=== PATIENT | female | born 2000 | race Caucasian/White ===

== ENCOUNTER 2024-03-20 11:05 | Observation (INO) | payer OTHER, SELFPAY ==
--- NOTE | 2024-03-20 11:20 | US_ITS ---
[address] [address] Patient Name: LAKESHA QURESHI MRN: [id number] date: 2000 Sex: F Assigned Patient Location: [facility] Current Patient Location: [facility] Accession/Order Number: [id number] Exam Date: 03/20/2024 11:23 Report Date: 03/20/2024 11:53 At the request of: LAURA POLLARD Procedure: US OB cervical length EXAMINATION: US OB cervical length HISTORY: bloody vaginal discharge COMPARISON: No relevant comparison available. FINDINGS: position: Cephalic Cervix: 4.1 cm, closed Clinical age: 24 weeks 1 day Clinical ALETHEA: 07/09/2024 US/US OB cervical length IMPRESSION: Closed cervix measuring 4.1 cm Electronically authenticated by: FARZANA PRO Date: 03/20/2024 11:53
--- NOTE | 2024-03-20 11:29 | PC.NURSE ---
1115: Arrives ambulatory from home with c/o bloody with wiping after urinating- small amount. Has history of kidney stones and denies back pain or other symptoms. To bathroom for urine sample and US in room for cervical length.
[2024-03-20 12:20] LABS: Bilirubin Urine NEGATIVE (NEGATIVE); Blood Urine NEGATIVE (NEGATIVE); Clarity Urine CLEAR (CLEAR); Color Urine LT. YELLOW (YELLOW); Glucose Urine UA NEGATIVE (NEGATIVE); Ketones Urine NEGATIVE (NEGATIVE); Leukocyte Esterase Urine NEGATIVE (NEGATIVE); Nitrite Urine NEGATIVE (NEGATIVE); Protein Urine NEGATIVE (NEG/TRACE); Specific Gravity Urine 1.015 (1.005-1.025); Urobilinogen Urine 0.2 EU/dL (0.2-1.0); pH Urine 7.5 (5.0-9.0)
[2024-03-20 12:27] LABS: Urine Microscopic Indicated NO
--- NOTE | 2024-03-20 13:18 | PC.NURSE ---
1240: TC to CNM and no answer to cell phone. 1255: TC to CNM and no answer on cell phone. TC to office and recording received. 1258: CNM calls and report given- reported urinalysisi, cervical length and hear tones. Informed of scant blood on toilet paper after voiding and started about 5 days ago. Denies intercourse within 24-48 hours and denies need for abel pad. No flank pain palpated bilaterally. No fever noted. Denies pain with voiding. Order received for discharge and f/u in office. 1315: Discharged ambulatory with undelivered.
== END 2024-03-20 13:15 | disposition home or self-care (01) ==
PROVIDERS: Admitting Provider Midwife; PCP Internal Medicine; Visit Provider Midwife
DX: O26.892 Other specified pregnancy related conditions, second trimester (principal); N89.8 Other specified noninflammatory disorders of vagina; Z3A.24 24 weeks gestation of pregnancy
CPT/HCPCS: 76817; 81003; G0378; G0379

== ENCOUNTER 2024-07-04 05:25 | Inpatient (IN) | payer OTHER, SELFPAY ==
[2024-07-04] VITALS (33 sets, daily range): BP systolic 74–144; BP diastolic 43–105; PULSE 85–110; TEMP 36.1–37.2; O2SAT 97–100
[2024-07-04] MEDS: LACTATED RINGER'S SOLUTION 1,000 ML 1000 ML IV ×2 (05:48→06:54)
[2024-07-04 06:18] LABS: Bilirubin Urine NEGATIVE (NEGATIVE); Blood Urine NEGATIVE (NEGATIVE); Clarity Urine CLEAR (CLEAR); Color Urine LT. YELLOW (YELLOW); Glucose Urine UA NEGATIVE (NEGATIVE); Ketones Urine NEGATIVE (NEGATIVE); Leukocyte Esterase Urine NEGATIVE (NEGATIVE); Nitrite Urine NEGATIVE (NEGATIVE); Protein Urine NEGATIVE (NEG/TRACE); Urobilinogen Urine 0.2 EU/dL (0.2-1.0)
[2024-07-04 06:24] LABS: Bacteria Urine TRACE #/HPF (NONE SEEN); Cast Seen? NONE SEEN #/LPF (NONE SEEN); Crystals Seen? None Seen #/HPF (None Seen); RBC Urine 0-2 #/HPF (0-2); Squamous Epithelial Cell Urine RARE #/LPF (NONE/RARE); WBC Urine 0-2 #/HPF (NONE SEEN)
[2024-07-04 06:25] LABS: Urine Culture Indicated NO
[2024-07-04 06:28] LABS: Amphetamine Screen Urine NEGATIVE (NEGATIVE); Barbiturates Screen Urine NEGATIVE (NEGATIVE); Benzodiazepines Screen Urine NEGATIVE (NEGATIVE); Buprenorphine Screen Urine NEGATIVE (NEGATIVE); Cannabinoid Screen Urine NEGATIVE (NEGATIVE); Cocaine Screen Urine NEGATIVE (NEGATIVE); Methadone Screen Urine NEGATIVE (NEGATIVE); Methamphetamines Screen Urine NEGATIVE (NEGATIVE); Opiate Screen Urine NEGATIVE (NEGATIVE); Oxycodone Screen Urine NEGATIVE (NEGATIVE); Phencyclidine Screen Urine NEGATIVE (NEGATIVE); Tricyclic Antidepressant Urine NEGATIVE (NEGATIVE)
[2024-07-04 06:41] LABS: Hematocrit 35.5 % (36.0-48.0); Hemoglobin 12.3 g/dL (12.0-16.0); Mean Corpuscular HGB Conc 34.6 g/dL (29.9-35.2); Mean Corpuscular Hemoglobin 31.2 pg (26.7-34.0); Mean Corpuscular Volume 90.1 fL (81.0-99.0); Mean Platelet Volume 12.5 fL (9.5-13.5); Platelet Count 172 10^3/uL (150-450); Red Blood Count 3.94 10^6/uL (4.20-5.40); Red Cell Distribution Width 13.5 % (11.0-15.0); White Blood Count 8.1 10^3/uL (4.0-11.0)
[2024-07-04] MEDS: METOCLOPRAMIDE HCL 10 MG/2 ML VIAL IVP (07:11)
[2024-07-04] MEDS: FAMOTIDINE/PF 20 MG/2 ML VIAL IV (07:11)
[2024-07-04] MEDS: CITRIC ACID/SODIUM CITRATE 30 ML SOLUTION ORACIT SHOHL'S SOLN PO (07:11)
--- NOTE | 2024-07-04 07:16 | P.OBHP_ITS ---
OB - H&P: HPI History of Present Illness Chief complaint: : 1 Para: 0 History of Present Dating criteria: LMP confirmed by 1st trimester US care: good care Ultrasounds: normal 1st trimester US and normal mid trimester US Medical complications OB: none Narrative: patient has h/o asthma but no problems for a long time and no meds Labs Blood type: A (+) positive Rubella: immune RPR/VDLR: nonreactive GBS status: negative HBsAG: negative Review of Systems ROS Status of ROS: 10 or more systems reviewed and unremarkable except as noted in history and below Psychiatric: Reports: anxiety PFSH PFSH Social History Little interest or pleasure in doing things: not at all Feeling down, depressed, or hopeless: not at all Meds Home Medications and Allergies Allergies Allergy/AdvReac Type Severity Reaction Status Date / Time milk Allergy hives Verified 07/04/24 06:45 soy Allergy hives Verified 07/04/24 06:45 peanuts Allergy Anaphylaxis Uncoded 07/04/24 06:45 Exam Constitutional Vital Signs, click to edit/add: Last Vital Signs Temp 99.0 F 07/04/24 05:49 Resp 16 07/04/24 05:49 O2 Del Method Room Air 07/04/24 05:49 Documenting provider has reviewed patient's vital signs: yes Common normals: no apparent distress and oriented x3 General appearance: cooperative, comfortable, well kempt and well developed Orientation/consciousness: Yes awake, Yes oriented to person, Yes oriented to place and Yes oriented to time HENMT Common normals: normocephalic Head and scalp: normal to inspection Face and sinus: normal facial exam Eye Common normals: EOMs intact bilaterally General eye: normal appearance of both eyes Neck & C-Spine Common normals: full ROM and no lymphadenopathy Lymph Lymphatic: no lymphadenopathy noted Chest Common normals: inspection of chest normal Respiratory Common normals: normal respiratory effort, no retractions, no use of accessory muscles, clear to auscultation bilaterally and percussion normal Effort & inspection: able to speak in complete sentences Auscultation: clear to auscultation bilaterally Cardio Common normals: regular rate and regular rhythm Rate: regular rate Rhythm: regular rhythm GI Common normals: Normal to inspection, nondistended, normoactive bowel sounds present Inspection: normal to inspection Palpation: soft Common normals: no CVA tenderness Back & Pelvis Common normals: no CVA tenderness Thoracic spine/upper back: normal to inspection Extremity Common normals: normal to inspection Neuro Common normals: oriented x3 Sensorium/orientation: awake, alert, oriented to person, oriented to place and oriented to time Psych Common normals: mental status grossly normal, thought process normal, cooperative, affect normal, speech normal, activity/motor behavior normal, denies hallucinations, denies homicidal ideation and denies suicidal ideation Attitude: calm Results Labs Labs: Short CBC 07/04/24 Range/Units 05:45 WBC 8.1 (4.0-11.0) 10^3/uL Hgb 12.3 (12.0-16.0) g/dL Hct 35.5 L (36.0-48.0) % Plt Count 172 (150-450) 10^3/uL Urine 07/04/24 Range/Units 05:30 Urine Color Lt. yellow (YELLOW) Urine Clarity Clear (CLEAR) Urine pH 6.0 (5.0-9.0) Ur Specific [place] 1.020 (1.005-1.025) Urine Protein Negative (NEG/TRACE) mg/dL Urine Glucose (UA) Negative (NEGATIVE) mg/dL OB - A/P Assessment and Plan (1) Term : (2) Breech delivery: (3) History of primary section: Plan admit to L&D for primary section for breech presentation Urinary Catheter Management Urinary Catheter Management Urethral: Cath placed during this visit: no Urethral indwelling: Yes Reason for continuing: prolonged immobilization
[2024-07-04] MEDS: CEFAZOLIN SODIUM/DEXTROSE,ISO 2 GM/50 ML PIGGYBACK IV ×2 (07:17→12:25)
[2024-07-04] MEDS: LACTATED RINGER'S SOLUTION 1,000 ML 50 ML IV ×2 (08:10→08:18)
--- NOTE | 2024-07-04 08:26 | P.ON_ITS ---
Brief Operative Note Date of procedure: 07/04/24 Pre-op diagnosis general: iup at 39wks, breech presentation Post-op diagnosis: same as pre-op Procedure: NAME OF PROCEDURE: [ section ] PROCEDURE: Patient was taken back to the Operating Room where she was given a spinal anesthesia with Duramorph without difficulty. She was prepped and draped in the normal sterile fashion. A Pfannenstiel skin incision was then made 2 cm above the symphysis pubis and carried down to underlying rectus fascia using a Bovie. The fascia was incised in the midline and extended laterally using Lockhart scissors. Two Tutu clamps were placed on the superior aspect of the fascia and dissected off the underlying rectus muscles. The same was performed on the inferior aspect as well. The muscles were then in the midline. Peritoneum was identified and entered bluntly. The peritoneum was then extended superiorly and inferiorly with good visualization of the bladder. The bladder blade was inserted. A low transverse incision was made on the patient's uterus and extended laterally digitally. The was then delivered atraumatically after the bladder blade was removed in the cephalic position. The cord was clamped and cut. Cord blood was obtained. The was handed off to awaiting team. The patient's placenta was spontaneously delivered. The uterus was then exteriorized. The uterus was cleared of all clots and debris. The bladder blade was reinserted. The patient's uterine incision was closed using #0 Vicryl in a running lock fashion. Excellent hemostasis was assured. The uterus was then returned to the patient's abdomen. The patient's abdomen was copiously irrigated using warm saline. Peritoneal gutters were cleared of all clots and debris. Again excellent hemostasis was assured. The patient's peritoneum was closed using 3-0 Vicryl in a running fashion. The patient's fascia was closed using #0 Vicryl in a running fashion. The patient's skin was closed using 4-0 Vicryl subcuticularly. The patient tolerated the procedure well. Sponge, lap, and needle counts were correct x2. The patient was taken to the Recovery Room in stable condition. Anesthesia: spinal Surgeon: Deni Freeman Sugar Cane Planting Equipment Operator: LAURA POLLARD Estimated blood loss (mL): 600 Pathology: other (placenta) Condition: stable Disposition: floor Urinary Catheter Management Urinary Catheter Management Urethral: Cath placed during this visit: no Urethral indwelling: Yes
--- NOTE | 2024-07-04 08:26 | PM.OBPRCCS ---
Procedure Pre-op/Post-op diagnoses: Pre-Op/Post-Op Diagnoses Operation Date: 07/04/24 07:30 <No data on this case meets the specified criteria> Procedure: Procedures Operation Date: 07/04/24 07:30 Actual Procedure Side Surgeon p PRIMARY Not Applicable Deni Freeman DO Stock Crane Operator: LAURA POLLARD Estimated blood loss (mL): 600 Disposition: floor Anesthesia type: Spinal
--- NOTE | 2024-07-04 08:53 | P.EN_ITS ---
Event Note Event Note: Crusher Plant Operator Note: I first assisted Dr Freeman with primary section as directed. I independently closed the SQ layer with 3-0 vicryl. I then independently closed the incision with 4-0 vicryl without difficulty. Hemostasis noted at the completion of the case. Patient tolerated procedure well.
[2024-07-04] MEDS: KETOROLAC TROMETHAMINE 30 MG/ML VIAL IVP ×2 (14:04→20:27)
[2024-07-04] MEDS: ACETAMINOPHEN 500 MG TABLET 1000 MG PO ×2 (16:02→23:48)
[2024-07-04] MEDS: ENOXAPARIN SODIUM 40 MG/0.4 ML SYRINGE SUBQ (20:27)
[2024-07-05] MEDS: SIMETHICONE 80 MG TAB.CHEW PO (00:03)
[2024-07-05 00:05] VITALS: BP 129/86; TEMP 36.2
[2024-07-05] MEDS: KETOROLAC TROMETHAMINE 30 MG/ML VIAL IVP (02:53)
[2024-07-05 04:33] VITALS: BP 123/75; TEMP 36.6
[2024-07-05 06:27] LABS: Basophils Percent Auto 0.1 % (0.2-2.0); Eosinophils Percent Auto 0.1 % (0.9-7.0); Hemoglobin 11.1 g/dL (12.0-16.0); Immature Granulocytes Abs Auto 0.07 10^3/uL (0.00-0.03); Immature Granulocytes Pct Auto 0.5 % (0.0-0.5); Lymphocytes Absolute Auto 2.2 10^3/uL (1.2-3.8); Lymphocytes Percent Auto 15.1 % (20.5-60.0); Mean Corpuscular HGB Conc 34.7 g/dL (29.9-35.2); Mean Corpuscular Hemoglobin 31.3 pg (26.7-34.0); Mean Corpuscular Volume 90.1 fL (81.0-99.0); Mean Platelet Volume 12.3 fL (9.5-13.5); Monocytes Absolute Auto 0.9 10^3/uL (0.3-0.8); Monocytes Percent Auto 5.9 % (1.7-12.0); Neutrophils Absolute Auto 11.7 10^3/uL (1.4-6.5); Neutrophils Percent Auto 78.3 % (43.0-75.0); Platelet Count 184 10^3/uL (150-450); Red Blood Count 3.55 10^6/uL (4.20-5.40); Red Cell Distribution Width 13.6 % (11.0-15.0); White Blood Count 14.9 10^3/uL (4.0-11.0)
--- NOTE | 2024-07-05 07:40 | PM.OBPN ---
OB - PN: Subj Subjective Patient comments: no complaints and pain well controlled [place] status: doing well Exam Constitutional Vital Signs, click to edit/add: Last Vital Signs Temp 97.9 F 07/05/24 04:33 Pulse 88 07/04/24 11:20 Resp 18 07/04/24 16:44 BP 123/75 07/05/24 04:33 Pulse Ox 97 07/04/24 11:15 O2 Del Method Room Air 07/05/24 04:30 Documenting provider has reviewed patient's vital signs: yes Common normals: no apparent distress Respiratory Common normals: normal respiratory effort and clear to auscultation bilaterally Cardio Common normals: regular rate and regular rhythm GI Common normals: Normal to inspection, nondistended, normoactive bowel sounds present Extremity Common normals: no clubbing, cyanosis or edema and no calf tenderness Results Labs Labs: Short CBC 07/05/24 Range/Units 06:13 WBC 14.9 H (4.0-11.0) 10^3/uL Hgb 11.1 L (12.0-16.0) g/dL Hct 32.0 L (36.0-48.0) % Plt Count 184 (150-450) 10^3/uL Urinary Catheter Management Urinary Catheter Management Urethral: Cath placed during this visit: no Urethral indwelling: Yes OB - PN: A/P Assessment and Plan (1) Term : (2) Breech delivery: (3) History of primary section: Plan - day: 1 Plan: routine postop care Time Spent with Patient Time: Total time spent is greater than 50% in coordination of care (as documented) at patient's floor/unit and/or counseling patient: Total time spent with greater than 50% in coordination of care (as documented) at patient's floor/unit and/or counseling patient: less than 15 minutes
[2024-07-05 07:50] VITALS: BP 119/78; PULSE 79
[2024-07-05 07:55] VITALS: TEMP 36.4
[2024-07-05] MEDS: DOCUSATE SODIUM 100 MG CAPSULE PO ×2 (08:23→20:58)
[2024-07-05] MEDS: IBUPROFEN 400 MG TABLET 800 MG PO ×2 (09:25→17:23)
[2024-07-05] MEDS: ACETAMINOPHEN 500 MG TABLET 1000 MG PO ×2 (12:13→20:58)
[2024-07-05 15:36] VITALS: BP 117/75; PULSE 85; TEMP 36.4
[2024-07-05] MEDS: ENOXAPARIN SODIUM 40 MG/0.4 ML SYRINGE SUBQ (20:58)
[2024-07-05 23:55] VITALS: BP 106/66; PULSE 88; TEMP 37
[2024-07-06 07:50] VITALS: TEMP 36.8
--- NOTE | 2024-07-06 07:53 | W.PC.ACHO ---
Registration Status: ADM IN Primary Language: Emirati Preferred Language: Emirati Report received from Keyur RN at 0710. Care assumed. Active Medications Generic Name Dose Route Start Last Admin Trade Name Freq PRN Reason Stop Dose Admin Acetaminophen 1,000 mg 07/04/24 16:00 07/05/24 20:58 Acetaminophen 500 Mg Tablet PO 07/06/24 09:00 1,000 mg Q8H TAYLOR Administration Al Hydroxide/Mg Hydroxide 2,400 mg 07/04/24 08:56 Magnesium Hydroxide 2,400 Mg/10 Ml Oral.Susp PO Q6H PRN Dyspepsia Diphtheria/Pertussis/Tetanus Vacc 0.5 ml 07/06/24 09:00 Adacel Diph,Pertuss(Acell),Tet Vac/Pf 0.5 Ml Adult Syringe IM 07/06/24 09:01 .ONCE ONE Docusate Sodium 100 mg 07/05/24 09:00 07/05/24 20:58 Docusate Sodium 100 Mg Capsule PO 100 mg BID TAYLOR Administration Enoxaparin Sodium 40 mg 07/04/24 21:00 07/05/24 20:58 Enoxaparin Sodium 40 Mg/0.4 Ml Syringe SUBQ 40 mg Q24H TAYLOR Administration Oxytocin/Sodium Chloride 20 units in 1,000 mls @ 125 mls/hr 07/04/24 05:27 Pitocin 20 Unit/1,000 Ml-Ns IV Q8H PRN POST DELIVERY Promethazine HCl 25 mg/ Sodium 51 mls @ 204 mls/hr 07/04/24 08:56 Chloride IV Q6H PRN Nausea And Vomiting Lactated Ringer's 1,000 mls @ 125 mls/hr 07/04/24 08:56 Lactated Ringers IV .Q8H PRN IF NOT TOLERATING PO FLUIDS OR Ibuprofen 800 mg 07/05/24 10:00 07/06/24 02:00 Ibuprofen 400 Mg Tablet PO Not Given Q8H TAYLOR Ondansetron HCl 4 mg 07/04/24 08:56 Ondansetron Pf 4 Mg/2 Ml Vial IV Q6H PRN Nausea And Vomiting Ondansetron HCl 4 mg 07/04/24 08:56 Ondansetron 4 Mg Rapdis Tablet PO Q6H PRN Nausea And Vomiting Oxycodone HCl 5 mg 07/04/24 08:56 Oxycodone Hcl 5 Mg Tablet PO Q4H PRN Breakthrough Pain Senna 17.2 mg 07/04/24 20:00 Sennosides 8.6 Mg Tablet PO QHS PRN Constipation Simethicone 80 mg 07/04/24 08:56 07/05/24 00:03 Simethicone 80 Mg Tab.Chew PO 80 mg QID PRN Administration Abdominal Distention Respiratory Oxygen Delivery Method Room Air Oxygen Delivery Method Room Air Oxygen Delivery Method Room Air Bowels Bowel Pattern No Bowel Movement Bowel Pattern No Bowel Movement Bowel Pattern No Bowel Movement Renal Bladder Pattern Continent
[2024-07-06 07:59] VITALS: BP 133/82; PULSE 86
[2024-07-06] MEDS: IBUPROFEN 400 MG TABLET 800 MG PO (08:01)
[2024-07-06] MEDS: DOCUSATE SODIUM 100 MG CAPSULE PO (08:02)
--- NOTE | 2024-07-06 08:12 | PM.OBPN ---
OB - PN: Subj Subjective Patient comments: no complaints and pain well controlled [place] status: doing well Exam Constitutional Vital Signs, click to edit/add: Last Vital Signs Temp 98.6 F 07/05/24 23:55 Pulse 86 07/06/24 07:59 Resp 16 07/05/24 15:36 BP 133/82 07/06/24 07:59 Pulse Ox 97 07/04/24 11:15 O2 Del Method Room Air 07/06/24 00:00 Documenting provider has reviewed patient's vital signs: yes Common normals: no apparent distress Respiratory Common normals: clear to auscultation bilaterally Cardio Common normals: regular rate and regular rhythm GI Common normals: Normal to inspection, nondistended, normoactive bowel sounds present Extremity Common normals: no calf tenderness Urinary Catheter Management Urinary Catheter Management Urethral: Cath placed during this visit: no Urethral indwelling: Yes OB - PN: A/P Assessment and Plan (1) Term : (2) Breech delivery: (3) History of primary section: Plan - day: 2 Plan: routine postop care, discharge home and other (fu 1wk) Time Spent with Patient Time: Total time spent is greater than 50% in coordination of care (as documented) at patient's floor/unit and/or counseling patient: Total time spent with greater than 50% in coordination of care (as documented) at patient's floor/unit and/or counseling patient: less than 15 minutes
[2024-07-06] MEDS: ACETAMINOPHEN 500 MG TABLET 1000 MG PO (10:20)
== END 2024-07-06 15:10 | disposition home or self-care (01) | DRG 788 ==
PROVIDERS: Admitting Provider Midwife; PCP Internal Medicine; Visit Provider Obstetrics & Gynecology
PROC: 10D00Z1 Extraction of Products of Conception, Low, Open Approach (ICD-10-PCS; CPT 59514; principal; 2024-07-04 07:30)
DX: O32.1XX0 Maternal care for breech presentation, not applicable or unspecified (principal); Z3A.39 39 weeks gestation of pregnancy; Z37.0 Single live birth
CPT/HCPCS: 36415; 64488; 80307; 81001; 85025; 85027; 86850; 86900; 86901; 88307; 94667; 94668; J0131; J0665; J0690; J1100; J1650; J1885; J2274; J2371; J2405; J2590; J2765; J3490